=== PATIENT | female | born 1995 | race Asian ===

== ENCOUNTER 2017-04-12 16:21 | Emergency (ER) | payer OTHER ==
[2017-04-12 16:28] VITALS: BP 135/88; RESP 18
--- NOTE | 2017-04-12 17:29 | EDPHY ---
H & P Smoking Status: Never smoked Time Seen by Provider: 04/12/17 17:16 HPI/ROS: CHIEF COMPLAINT: Back pain, fever HISTORY OF PRESENT ILLNESS: 22-year-old female presents to the emergency department with low back pain and fever that began 2 days ago. She was diagnosed with urinary tract infection on Tuesday, 2 days ago and started on Bactrim. She has been taking Bactrim as prescribed for the last 2 days and feels like her symptoms are getting worse. She states that prior to starting the antibiotic, she had dysuria for 2 weeks. She also had urinary frequency and urgency. No nausea vomiting. No abdominal pain. No chest pain or difficulty breathing. REVIEW OF SYSTEMS: Constitutional: Fever, chills Eyes: No double or blurry vision. ENT: No sore throat. Respiratory: No cough, no shortness of breath. Cardiac: No chest pain. Gastrointestinal: No abdominal pain, vomiting or diarrhea. Genitourinary: Dysuria, urgency, frequency Musculoskeletal: Back pain as above. No neck pain. Skin: No rashes. Neurological: No headache. (Rose Rodriguez) Past Medical/Surgical History: Negative (Rose Rodriguez) Social History: Single (Rose Rodriguez) Physical Exam: General Appearance: Alert, no distress. Temperature 37.3degrees. Nontoxic appearing. Eyes: Pupils equal and round. Extraocular motions are all intact. ENT: Mouth: Mucous membranes moist. Respiratory: No wheezing, rhonchi, or rales, lungs are clear to auscultation. Cardiovascular: Regular rate and rhythm. Gastrointestinal: Abdomen is soft and nontender, no masses, no rebound or guarding, bowel sounds normal. No CVA tenderness bilaterally. Neurological: Alert and oriented x 3, cranial nerves II through XII grossly intact Skin: Warm and dry, no rashes. Musculoskeletal: Nontender to palpate along the cervical, thoracic or lumbar spine. Neck is supple. Extremities: Full range of motion and no peripheral edema. Psychiatric: Patient is oriented X 3, there is no agitation. (Rose Rodriguez) Constitutional: Initial Vital Signs Temperature (C) 37.3 C 04/12/17 16:24 Heart Rate 108 H 04/12/17 16:24 Respiratory Rate 18 04/12/17 16:24 Blood Pressure 135/88 H 04/12/17 16:24 O2 Sat (%) 98 04/12/17 16:24 O2 Delivery Mode Room Air Allergies/Adverse Reactions: Penicillins Allergy (Verified 04/12/17 16:29) Home Medications: Medication Instructions Recorded Bactrim DS 04/12/17 levOFLOXACIN [Levaquin] 750 mg PO DAILY 5 Days tab 04/12/17 Medical Decision Making ED Course/Re-evaluation: 22-year-old female presents to the emergency department with fever and continued dysuria and flank pain. Clinically I think this patient has pyelonephritis. She has been taking Bactrim without results. She was changed to Levaquin 750 mg orally. She was given a dose in the emergency department and a prescription for 5 additional days. Her urine was cultured. I doubt kidney stone. The patient does not have unilateral flank pain. She has no CVA tenderness bilaterally. The case was discussed with Dr. Karli Fraser, secondary supervising physician, who did not directly evaluate the patient but agrees with treatment and plan. Patient will call for the results of the urine culture and was instructed to return if she developed increased fever, vomiting, worsening pain or any other concerns. (Rose Rodriguez) The patient was evaluated and managed by the physician assistant spa manager. I have reviewed this chart and I agree with the findings and plan of care as documented , as indicated by my signature. I am the secondary supervising physician. ( Karli Fraser) Differential Diagnosis: Including but not limited to pyelonephritis, kidney infection, kidney stone ( Rose Rodriguez) - Data Points Microbiology Results: MICROBIOLOGY 04/12/17 Unknown Urine,Clean Catch Urine Culture - Final Escherichia Coli Two [place] Types Medications Given: Discontinued Medications Ibuprofen (Motrin) 600 mg PO EDNOW ONE Stop: 04/12/17 18:05 Last Admin: 04/12/17 18:24 Dose: 600 mg Levofloxacin (Levaquin) 750 mg PO EDNOW ONE PRN Reason: Protocol Stop: 04/12/17 18:44 Last Admin: 04/12/17 19:02 Dose: 750 mg Departure - Departure Disposition: Home, Routine, Self-Care Clinical Impression: Pyelonephritis Condition: Good Instructions: Levofloxacin (By mouth), Kidney Infection (ED) Additional Instructions: Call [phone] for the results of your urine culture in 48 hours. Levaquin daily for 5 days. Return to the emergency department if you developed recurring fever, vomiting, increasing or worsening pain or if you feel worse in any way. 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
[2017-04-12 17:38] LABS: COLOR PALE YELLOW; LEUKOCYTE ESTERASE,URINE NEGATIVE (NEGATIVE); NITRITE,URINE NEGATIVE (NEGATIVE)
[2017-04-12 17:41] LABS: BACTERIA 2+ /hpf (NONE SEEN)
[2017-04-12] MEDS ORDERED: IBUPROFEN 600 MG TAB PO ONE (18:04)
[2017-04-12 19:10] VITALS: PULSE 101; TEMP 99.3; O2SAT 94
== END 2017-04-12 19:15 | disposition home or self-care (01) ==
DX: N12 Tubulo-interstitial nephritis, not specified as acute or chronic (principal)